=== PATIENT | female | born 1950 | race American Indian/Alaskan Native ===

== ENCOUNTER 2018-01-19 13:20 | Outpatient (CLI) | payer OTHER ==
--- NOTE | 2018-01-21 15:57 | Mammography Report ---
BILATERAL DIGITAL SCREENING MAMMOGRAM with CAD: 01/19/18 13:20:00 CLINICAL: Routine screening. COMPARISON:09/02/16 FINDINGS: The breasts are heterogeneously dense, which may obscure small masses. No mass, architectural distortion or suspicious calcifications. IMPRESSION: No mammographic evidence of malignancy. BI-RADS CATEGORY: 1 - - Negative RECOMMENDATION: Routine mammographic screening in one year. COMMENT: Patient follow-up letters are generated by our [employer] application.
== END 2018-01-19 13:21 | disposition home or self-care (01) ==
LOC: MAMMO 13:20
PROVIDERS: ATTEND Family Medicine
DX: Z12.31 Encounter for screening mammogram for malignant neoplasm of breast (principal)
CPT/HCPCS: 77067

== ENCOUNTER 2022-07-03 12:31 | Outpatient (CLI) | payer OTHER ==
--- NOTE | 2022-07-03 13:48 | Mammography Report ---
DIGITAL DIAGNOSTIC MAMMOGRAM , 07/03/2022 CLINICAL INFORMATION / INDICATION: Patient presents for evaluation of medial left breast pain TECHNIQUE: Digital bilateral mammographic imaging was performed. COMPARISON: Prior mammogram 01/19/2018 FINDINGS: Breast Density: There are scattered areas of fibroglandular density. No dominant mass, suspicious calcifications or architectural distortion in either breast. No mammographic correlate for medial left breast pain. The appearance of the mammogram is unchanged c ompared with 2018. IMPRESSION: No mammographic evidence of malignancy. Clinical correlation recommended for left breast pain. Follow up recommendation: Routine yearly screening mammogram. BI-RADS Category 1: NEGATIVE. A "normal" or negative report should not discourage follow up or biopsy of a clinically significant f inding. A written summary of these findings will be mailed to the patient. The patient will be entered into a mammography reporting system which will generate a reminder letter for the patient's next appointmen t at the appropriate interval. According to the [employer], yearly mammograms are recommended starting at age 40 and continuing as long as a woman is in good health. Breast MRI is recommended for women with an emanuel roximately 20-25% or greater lifetime risk of breast cancer, including women with a strong family his tory of breast or ovarian cancer and women who have been treated for Hodgkin's disease. Signer Name: Lexis St MD Signed: 07/03/2022 1:44 PM Workstation Name: [id number]
== END 2022-07-03 12:32 | disposition home or self-care (01) ==
LOC: MAMMO 12:31
PROVIDERS: ATTEND Family Medicine
DX: N64.4 Mastodynia (principal)
CPT/HCPCS: 77066

== ENCOUNTER 2022-08-19 13:48 | Emergency (ER) | payer OTHER ==
[2022-08-19 14:20] VITALS: BP 157/100
[2022-08-19 15:31] LABS: Basophils % (Auto) 0.3 % (0.0-1.8); Hematocrit 35.9 % (30.3-42.9); Hemoglobin 12.1 gm/dl (10.1-14.3); Lymphocytes # (Auto) 1.3 K/mm3 (1.2-5.4); Lymphocytes % (Auto) 8.1 % (13.4-35.0); Mean Corpuscular HGB Conc 34 % (30-34); Mean Corpuscular Volume 95 fl (79-97); Monocytes # (Auto) 1.1 K/mm3 (0.0-0.8); Monocytes % (Auto) 6.6 % (0.0-7.3); Platelet Count 414 K/mm3 (140-440); Red Blood Count 3.78 M/mm3 (3.65-5.03); Red Cell Distribution Width 12.8 % (13.2-15.2)
[2022-08-19 15:51] LABS: Alanine Aminotransferase 22 units/L (7-56); Albumin 4.4 g/dL (3.9-5); BUN/Creatinine Ratio 14; Blood Urea Nitrogen 13 mg/dL (7-17); Calcium 9.8 mg/dL (8.4-10.2); Hemolysis Index 1
[2022-08-19 19:10] LABS: Bilirubin,Urine SM (Negative); Blood,Urine NEG (Negative); Color,Urine Amber (Yellow)
[2022-08-19 19:16] LABS: Granular Casts,Urine 2 /LPF; Hyaline Casts,Urine 39 /LPF; Mucus,Urine 3+ /HPF
[2022-08-19 19:41] LABS: Ictotest,Urine Negative (Negative)
== END 2022-08-20 12:58 | disposition left against medical advice (07) ==
LOC: ED 13:48
DX: R10.9 Unspecified abdominal pain (principal); Z53.21 Procedure and treatment not carried out due to patient leaving prior to being seen by health care provider
CPT/HCPCS: 36415; 80053; 81001; 85025; 87086

== ENCOUNTER 2022-08-20 12:00 | Emergency (ER) | payer MEDICARE, OTHER ==
[2022-08-20 12:05] VITALS: BP 144/93
--- NOTE | 2022-08-20 14:25 | Cat Scan Report ---
CT ABDOMEN AND PELVIS WITHOUT CONTRAST HISTORY: abdominal pain COMPARISON: None. TECHNIQUE: Axial CT images were obtained through the abdomen and pelvis without IV contrast. Sagittal and coronal reformatted images. All CT scans at this location are performed using CT dose reduction for ALARA by means of automated exposure control. FINDINGS: CT ABDOMEN: Lung Bases: Clear. Liver: There are scattered small hypodensities throughout the liver which are too small to characteri ze but may represent small cysts or hemangiomas. Consider further evaluation with [address] or MRI with contrast. Biliary: No significant abnormality. Spleen: No significant abnormality. Unenlarged. Pancreas: No significant abnormality. Adrenals: No significant abnormality. Kidneys: No significant abnormality. Lymphatics: No lymphadenopathy. Vasculature: Mild atherosclerotic disease without acute abnormality. Bowel/Peritoneum: No significant abnormality. No free air. No free fluid. CT PELVIS: : There are multiple small partially calcified uterine fibroids. No adnexal abnormality is apprecia roman. The bladder is mostly empty but unremarkable. Osseous Structures: Mild thoracolumbar spondylosis. No suspicious bony lesion. Additional Findings: In the left upper quadrant, there is moderate inflammatory changes containing tr maribel gas adjacent to the greater curvature the stomach, splenic flexure and splenic hilum.. There are also multiple mesenteric nodules in the left upper quadrant. The etiology of this is unclear. An infe ctious process or carcinomatosis should be considered. IMPRESSION: There is ill-defined inflammatory changes in multiple mesenteric nodules in the left upper quadrant. It is unclear if this represents an inflammatory process such as an abscess or possibly carcinomatosi s. Consider further evaluation with CT with IV and oral contrast. Multiple small liver hypodensities as described. These may represent small cysts or hemangiomas but a re incompletely characterized on noncontrast CT. Uterine fibroid disease. Signer Name: Harris Cardoso Jr, MD Signed: 08/20/2022 2:21 PM Workstation Name: [id number]
[2022-08-20 20:46] LABS: Basophils # (Auto) 0.1 K/mm3 (0.0-0.1); Basophils % (Auto) 0.3 % (0.0-1.8); Eosinophils % (Auto) 0.1 % (0.0-4.3); Hematocrit 38.1 % (30.3-42.9); Hemoglobin 12.9 gm/dl (10.1-14.3); Lymphocytes # (Auto) 1.3 K/mm3 (1.2-5.4); Mean Corpuscular HGB Conc 34 % (30-34); Mean Corpuscular Volume 96 fl (79-97); Monocytes # (Auto) 0.9 K/mm3 (0.0-0.8); Monocytes % (Auto) 6.1 % (0.0-7.3); Platelet Count 416 K/mm3 (140-440); Red Blood Count 3.95 M/mm3 (3.65-5.03); Red Cell Distribution Width 13.2 % (13.2-15.2)
[2022-08-20 21:21] LABS: Alanine Aminotransferase 21 units/L (7-56); Albumin 4.6 g/dL (3.9-5); BUN/Creatinine Ratio 24; Blood Urea Nitrogen 24 mg/dL (7-17); Calcium 10.4 mg/dL (8.4-10.2); Hemolysis Index 2
[2022-08-20 21:33] LABS: Bilirubin,Direct < 0.2 mg/dL (0-0.2)
[2022-08-20] MEDS ORDERED: SODIUM CHLORIDE 0.9% 1000 ML 1,000 ML IV ONE (21:39)
[2022-08-20] MEDS ORDERED: MORPHINE 4 MG/1 ML INJ IV ONE (21:39)
[2022-08-20] MEDS ORDERED: ONDANSETRON 4 MG/2 ML INJ IV ONE (21:39)
[2022-08-20 22:02] LABS: Bilirubin,Urine NEG (Negative); Blood,Urine NEG (Negative); Color,Urine Amber (Yellow)
[2022-08-20 22:05] LABS: Mucus,Urine 3+ /HPF
[2022-08-20] MEDS ORDERED: cefTRIAXone/NS 1 GM/50 ML 1 GM/50 ML BAG IV ONE (22:14)
[2022-08-20] MEDS ORDERED: methylPREDNISolone Sod Succinate 125 MG/2 ML INJ IV ONE (23:07)
[2022-08-20] MEDS ORDERED: FAMOTIDINE 20 MG/2 ML INJ IV ONE (23:08)
[2022-08-20] MEDS ORDERED: diphenhydrAMINE 50 MG/ML VIAL IV ONE (23:08)
--- NOTE | 2022-08-20 23:38 | Cat Scan Report ---
CT ABDOMEN AND PELVIS WITH CONTRAST INDICATION / CLINICAL INFORMATION: pain 100ml of [id number]. Liver and mesenteric masses. TECHNIQUE: Axial CT images were obtained through the abdomen and pelvis after IV contrast. All CT sc ans at this location are performed using CT dose reduction for ALARA by means of automated exposure c ontrol. Exam is limited by motion artifact. COMPARISON: 08/20/2022 CT without FINDINGS: LOWER CHEST: No significant abnormality. LIVER: Multiple hypoenhancing hepatic masses most consistent with metastatic disease. Index mass with in the inferior left hepatic lobe measures 4.3 cm. The portal vein is patent. GALLBLADDER/BILIARY: No significant abnormality or evidence for biliary obstruction. PANCREAS: No significant abnormality. SPLEEN: No significant abnormality. ADRENALS: No significant abnormality. KIDNEYS/URETERS: No urolithiasis, hydronephrosis, solid renal mass or other significant abnormality. GI: Fluid and gas collection within the left upper quadrant appears unchanged as compared to the prio r exam measuring 6.0 x 5.9 cm in cross-sectional diameter. This is likely associated with the splenic flexure of the colon and suspected underlying primary colonic malignancy. Several adjacent enlarged left upper quadrant pericolonic lymph nodes or peritoneal metastasis are present. Index nodule measur es 1.6 x 1.3 cm (series 2, image 50). Prominent right colonic stool suggestive of constipation. APPENDIX: Not visualized. The appendix was normal on the recent noncontrast CT. PERITONEUM: No pneumoperitoneum or other free pelvic fluid. LYMPH NODES: Enlarged as detailed above within the left upper quadrant. There are also enlarged kym hepatis lymph nodes that are most likely reactive measuring 1.1 cm in short axis diameter (series 2, image 53). AORTA / ARTERIES: Mild atherosclerotic calcification without acute abnormality. URINARY BLADDER: No significant abnormality. REPRODUCTIVE ORGANS: Mild uterine enlargement and multiple calcified uterine fibroids appear unchange d. SKELETAL SYSTEM: Lumbar degenerative spondylosis without acute or destructive osseous process. ADDITIONAL FINDINGS: None. IMPRESSION: 1. Loculated fluid and gas collection within the left upper quadrant, likely associated with a spleni c flexure colonic mass. Gastroenterology and surgical consultation recommended. 2. 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 3. Otherwise stable since the recent noncontrast examination. Limited evaluation secondary to motion artifact. Signer Name: Filiberto Anderson MD Signed: 08/20/2022 11:34 PM Workstation Name: [id number]
--- NOTE | 2022-08-21 00:02 | Emergency Department Report ---
ED Abdominal Pain HPI - General Chief Complaint: Abdominal Pain Stated Complaint: URINE ISSUES PUI?: No Time Seen by Provider: 08/20/22 21:28 Source: patient Mode of arrival: Ambulatory Limitations: No Limitations - History of Present Illness Initial Comments: abd pain. concentrated urine. ongoing. here yesterday for the same. ziyad ADKINS Complaint: abdominal pain Location: LLQ Migration to: no migration Severity scale (0 -10): 8 Consistency: constant Improves With: nothing Worsens With: nothing Associated Symptoms: denies: denies other symptoms, nausea, vomiting, diarrhea - Related Data Allergies Allergy/AdvReac Type Severity Reaction Status Date / Time atorvastatin [From Lipitor] Allergy Rash Unverified 01/19/18 13:27 duloxetine [From Cymbalta] Allergy Unknown Verified 08/19/22 14:16 ED Review of Systems ROS: Stated complaint: URINE ISSUES Other details as noted in HPI Constitutional: denies: chills, fever Eyes: denies: eye pain, eye discharge, vision change ENT: denies: ear pain, throat pain Respiratory: denies: cough, shortness of breath, wheezing Cardiovascular: denies: chest pain, palpitations Endocrine: no symptoms reported Gastrointestinal: denies: abdominal pain, nausea, diarrhea Genitourinary: denies: urgency, dysuria, discharge Musculoskeletal: denies: back pain, joint swelling, arthralgia Skin: denies: rash, lesions Neurological: denies: headache, weakness, paresthesias Psychiatric: denies: anxiety, depression Hematological/Lymphatic: denies: easy bleeding, easy bruising ED Past Medical Hx - Past Medical History Hx Hypertension: Yes Hx Diabetes: Yes ED Physical Exam - General Limitations: No Limitations General appearance: alert, in no apparent distress - Head Head exam: Present: atraumatic, normocephalic - Eye Eye exam: Present: normal appearance - ENT ENT exam: Present: mucous membranes moist - Neck Neck exam: Present: normal inspection - Respiratory Respiratory exam: Present: normal lung sounds bilaterally. Absent: respiratory distress - Cardiovascular Cardiovascular Exam: Present: regular rate, normal rhythm. Absent: systolic murmur, diastolic murmur, rubs, gallop - GI/Abdominal GI/Abdominal exam: Present: soft, tenderness - Extremities Exam Extremities exam: Present: normal inspection - Back Exam Back exam: Present: normal inspection - Neurological Exam Neurological exam: Present: alert, oriented X3 - Psychiatric Psychiatric exam: Present: normal affect, normal mood - Skin Skin exam: Present: warm, dry, intact, normal color. Absent: rash ED Course Vital Signs 08/20/22 12:02 Temperature 98.4 F Pulse Rate 106 H Respiratory 16 Rate Blood Pressure 144/93 [Left] O2 Sat by Pulse 99 Oximetry ED Medical Decision Making - Lab Data Result diagrams: 08/20/22 20:19 08/20/22 20:19 - Radiology Data Radiology results: image reviewed - Medical Decision Making work up negative , CT scan shwoed left side mass that need GI consult will refer to GI Critical care attestation.: If time is entered above; I have spent that time in minutes in the direct care of this critically ill patient, excluding procedure time. ED Disposition Clinical Impression: UTI (urinary tract infection), Colonic mass Disposition: 01 HOME / SELF CARE / HOMELESS Is pt being admited?: No Does the pt Need Aspirin: No Condition: Stable Instructions: Abdominal Pain (ED) Referrals: PRIMARY MD RAMON [Primary Care Provider] - 3-5 Days VICENTA HERNANDEZ MD [Staff Physician] - 3-5 Days
== END 2022-08-21 00:23 | disposition home or self-care (01) ==
LOC: ED 12:00
DX: C18.9 Malignant neoplasm of colon, unspecified (principal); N39.0 Urinary tract infection, site not specified; E11.9 Type 2 diabetes mellitus without complications; I10 Essential (primary) hypertension; Z88.8 Allergy status to other drugs, medicaments and biological substances; Z79.899 Other long term (current) drug therapy
CPT/HCPCS: 36415; 74176; 74177; 80048; 80076; 81001; 82150; 83690; 85025; 87086; 96365; 96375; 99284; J0696; J1200; J2270; J2405; J2930; J3490; Q9967